=== PATIENT | male | born 1955 | race Caucasian/White ===

== ENCOUNTER → 2021-03-27 | Outpatient (CLI) | payer MEDICARE | LOC: HEART 5 14:27 | DX: J84.112 Idiopathic pulmonary fibrosis (principal) | CPT/HCPCS: 94010; 94729 ==

== ENCOUNTER → 2021-04-18 | Outpatient (CLI) | payer MEDICARE, OTHER | LOC: KOH-I 04-13 11:30 | DX: J84.112 Idiopathic pulmonary fibrosis (principal); R91.1 Solitary pulmonary nodule; R59.0 Localized enlarged lymph nodes | CPT/HCPCS: 71250 ==